=== PATIENT | female | born 1970 | race Caucasian/White ===

== ENCOUNTER 2018-08-12 07:00 | Day surgery (SDC) | payer OTHER | END 2018-08-12 13:00 | disposition home or self-care (01) | LOC: AMB-ENDOS 07:00 | DX: K59.09 Other constipation (principal); Z12.11 Encounter for screening for malignant neoplasm of colon ==

== ENCOUNTER → 2019-09-15 | Day surgery (SDC) | payer OTHER | END | disposition home or self-care (01) | LOC: ADM 09-11 12:00 → AMB-ENDOS 10:53 → ADM 12:00 → AMB-ENDOS 12:00 | PROVIDERS: ATTEND Surgery | DX: K62.89 Other specified diseases of anus and rectum (principal); Z12.12 Encounter for screening for malignant neoplasm of rectum ==